=== PATIENT | male | born 1955 | race Caucasian/White ===

== ENCOUNTER 2016-11-04 18:21 | Emergency (ER) | payer OTHER ==
[2016-11-04] MEDS ORDERED: Lidocaine 2% PF * 5 ML VIAL ONE (20:35)
[2016-11-04] MEDS ORDERED: Cephalexin CAP* 500 MG PO ONE ×2 (21:25→22:35)
[2016-11-04] MEDS ORDERED: Tetanus-Diptheria Toxoids* 0.5 ML SYRINGE IM ONE (21:30)
--- NOTE | 2016-11-04 22:10 | ED ---
Ras Mejia Alfonso, scribed for James Sotelo on 11/04/16 at 8 . Upper Extremity Pain - HPI Summary HPI Summary: This patient is a 60 year old M presenting to [facility] accompanied by family with a chief complaint of a splinter in his left hand finger since 1700 today. The patient rates the pain 0/10 in severity. Symptoms aggravated and alleviated by nothing. Patient reports a headache and low WBC (2.5). PMHx of recent heart transplant for which he is on antirejection medications. He reports undergoing 56 sessions of chemotherapy. - History of Current Complaint Chief Complaint: EDExtremityUpper Stated Complaint: SPLINTER UNDER FINGER NAIL Time Seen by Provider: 11/04/16 20:11 Hx Obtained From: Patient Onset/Duration: Started Hours Ago - 1700 today, Still Present Timing: Constant Severity Initially: Mild Severity Currently: Mild Pain Location: Finger - Left hand Aggravating Factor(s): Nothing Alleviating Factor(s): Nothing Associated Signs & Symptoms: Positive: Other - Headache and low WBC. - Allergies/Home Medications Allergies/Adverse Reactions: Allergies Allergy/AdvReac Type Severity Reaction Status Date / Time No Known Allergies Allergy Verified 11/04/16 18:25 PMH/Surg Hx/FS Hx/Imm Hx Cardiovascular History: Reports: Other Cardiovascular Problems/Disorders - Heart transplant. - Cancer History Cancer Type, Location and Year: He reports undergoing 56 sessions of chemotherapy. Infectious Disease History: Denies: Traveled Outside the [place] in Last 30 Days - Family History Known Family History: Positive: Cardiac Disease - Social History Alcohol Use: None Substance Use Type: Reports: None Smoking Status (MU): Never Smoked Tobacco Review of Systems Negative: Fever Positive: Other - Positive low WBC (2.5) due to PMHx. Skin: Other - Positive splinter in his left hand finger. Positive: Headache All Other Systems Reviewed And Are Negative: Yes Physical Exam Triage Information Reviewed: Yes Vital Signs On Initial Exam: Initial Vitals Temp Pulse Resp BP Pulse Ox 98.8 F 104 16 135/92 96 11/04/16 18:25 11/04/16 18:25 11/04/16 18:25 11/04/16 18:25 11/04/16 18:25 Vital Signs Reviewed: Yes Appearance: Positive: Well-Appearing, No Pain Distress Skin: Positive: Warm, Skin Color Reflects Adequate Perfusion, Dry, Other - F Head/Face: Positive: Normal Head/Face Inspection Eyes: Positive: EOMI, MINNIE ENT: Positive: Normal ENT inspection Neck: Positive: Supple, Nontender Respiratory/Lung Sounds: Positive: Clear to Auscultation, Breath Sounds Present Cardiovascular: Positive: RRR, Pulses are Symmetrical in both Upper and Lower Extremities Abdomen Description: Positive: Nontender, Soft Bowel Sounds: Positive: Present Musculoskeletal: Positive: Normal, Strength/ROM Intact Neurological: Positive: Normal, Sensory/Motor Intact, Alert, Oriented to Person Place, Time Procedures - Procedure Summary Procedure Summary: There was a foreign body under the nail of the left index finger. Digital block with lidocaine 2% at the left index finger. The foreign body was removed. The patient tolerated the procedure well. There were no complications. Diagnostics - Vital Signs Vital Signs Temp Pulse Resp BP Pulse Ox 11/04/16 18:51 98.8 F 104 16 135/92 96 11/04/16 18:25 98.8 F 104 16 135/92 96 - Laboratory Lab Statement: Any lab studies that have been ordered have been reviewed, and results considered in the medical decision making process. Course/Dx - Course Course Of Treatment: This patient is a 60 year old M presenting to [facility] accompanied by family with a chief complaint of a splinter in his left hand finger since 1700 today. The patient rates the pain 0/10 in severity. Symptoms aggravated and alleviated by nothing. Patient reports a headache and low WBC ( 2.5). PMHx of recent heart transplant for which he is on antirejection medications. He reports undergoing 56 sessions of chemotherapy. There was a foreign body under the nail of the left index finger. Digital block with lidocaine 2% at the left index finger. The foreign body was removed. The patient tolerated the procedure well. There were no complications. Patient will be discharged with prescription for Keflex and follow up from PCP. The patient is agreeable with this plan. - Diagnoses Provider Diagnoses: Foreign body of left index finger Discharge - Discharge Plan Condition: Stable Disposition: HOME Prescriptions: Cephalexin CAP* [Keflex CAP*] 500 mg PO TID #21 cap Patient Education Materials: Soft Tissue Foreign Body (ED) Referrals: [facility] [Outside] - 3 Days The documentation as recorded by the Ras marinelli Alfonso accurately reflects the service I personally performed and the decisions made by me, James Sotelo.
[2016-11-04 22:43] VITALS: BP 142/91
== END 2016-11-04 22:44 | disposition home or self-care (01) ==
LOC: ED 18:21
DX: S60.451A Superficial foreign body of left index finger, initial encounter (principal); X58.XXXA Exposure to other specified factors, initial encounter; Y93.9 Activity, unspecified; Y92.9 Unspecified place or not applicable; Z94.1 Heart transplant status; Z92.21 Personal history of antineoplastic chemotherapy
CPT/HCPCS: 10120; 99282; A9270-GY

== ENCOUNTER 2019-07-16 23:17 | Emergency (ER) | payer MEDICARE, OTHER ==
[2019-07-17 00:05] LABS: ABS Eosinophils 0.9 10^3/ul (0-0.6); ABS Monocytes 0.9 10^3/ul (0-0.8); Eosinophil % 12.7 %; Hematocrit 41 % (42-52); Hemoglobin 14.3 g/dL (14.0-18.0); Lymphocyte % 43.5 %; Mean Corpuscular HGB Conc 35 g/dL (31-36); Mean Corpuscular Hemoglobin 33 pg (27-31); Mean Corpuscular Volume 94 fL (80-94); Mean Platelet Volume 6.8 fL (7.4-10.4); Nucleated Red Blood Cells % 0.1; Platelet Count 181 10^3/uL (150-450); Red Blood Count 4.37 10^6 /uL (4.18-5.48); Red Cell Distribution Width 19 % (10-15); White Blood Count 6.9 10^3/uL (3.5-10.8)
[2019-07-17 00:24] LABS: ALT 22 U/L (7-52); AST 19 U/L (13-39); Albumin 4.2 g/dL (3.2-5.2); Albumin/Globulin Ratio 1.4 (1-3); Alkaline Phosphatase 94 U/L (34-104); Anion Gap 8 mmol/L (2-11); Blood Urea Nitrogen 34 mg/dL (6-24); C Reactive Protein < 1.00 mg/L (<8.01); CO2 Carbon Dioxide 23 mmol/L (22-32); Calcium 9.3 mg/dL (8.6-10.3); Chloride 105 mmol/L (101-111); EGFR African American 69.5 (>60); EGFR Non-African American 57.4 (>60); Glucose 118 mg/dL (70-100); Potassium 4.1 mmol/L (3.5-5.0); Sodium 136 mmol/L (135-145); Total Protein 7.2 g/dL (6.4-8.9)
[2019-07-17 00:25] LABS: Troponin I 0.01 ng/mL (<0.03)
[2019-07-17] MEDS ORDERED: NS 0.9% 1000 ml BAG 1,000 ML IV ONE (00:32)
[2019-07-17 00:50] LABS: TSH (Thyroid Stimulating Horm) 2.08 mcIU/mL (0.34-5.60)
[2019-07-17] MEDS ORDERED: Iodixanol (CONTRAST) 320 MG/ML 100 ML SDV IV ONE (01:07)
[2019-07-17 03:38] VITALS: BP 112/91
== END 2019-07-17 03:19 | disposition home or self-care (01) ==
LOC: ED 23:17

== ENCOUNTER 2021-08-29 12:43 | Inpatient (IN) ==
[2021-08-29] MEDS ORDERED: Lactated Ringers 1000 ml BAG 1,000 ML IV ONE ×2 (13:36→17:34)
[2021-08-29 14:43] LABS: ABS Lymphocytes 1.1 10^3/ul (1.0-4.8); ABS Monocytes 0.4 10^3/ul (0-0.8); ABS Neutrophils 1.8 10^3/ul (1.5-7.7); Eosinophil % 1.4 %; Hematocrit 47 % (42-52); Hemoglobin 15.9 g/dL (14.0-18.0); Lymphocyte % 32.5 %; Mean Corpuscular HGB Conc 34 g/dL (31-36); Mean Corpuscular Hemoglobin 30 pg (27-31); Mean Corpuscular Volume 88 fL (80-94); Mean Platelet Volume 6.9 fL (7.4-10.4); Nucleated Red Blood Cells % 0.1; Platelet Count 172 10^3/uL (150-450); Red Blood Count 5.27 10^6 /uL (4.18-5.48); Red Cell Distribution Width 14 % (10-15); White Blood Count 3.3 10^3/uL (3.5-10.8)
[2021-08-29 15:04] LABS: Activated Partial Thrombo Time 32.6 seconds (26.0-38.0); INR 1.02 (0.86-1.15)
[2021-08-29 15:05] LABS: High Sens Troponin Baseline 6 pg/mL (<20)
[2021-08-29 15:25] LABS: ALT 26 U/L (7-52); AST 33 U/L (13-39); Albumin 4.8 g/dL (3.2-5.2); Albumin/Globulin Ratio 1.7 (1-3); Alkaline Phosphatase 97 U/L (35-149); Anion Gap 8 mmol/L (2-11); Blood Urea Nitrogen 33 mg/dL (6-24); C Reactive Protein < 1.00 mg/L (<8.01); CO2 Carbon Dioxide 20 mmol/L (22-32); Calcium 9.3 mg/dL (8.6-10.3); Chloride 106 mmol/L (101-111); Globulin 2.9 g/dL (2-4); Glucose 98 mg/dL (70-100); Potassium 4.4 mmol/L (3.5-5.0); Sodium 134 mmol/L (135-145); Total Protein 7.7 g/dL (6.4-8.9); eGFR CKD-EPI 39.4 (>60)
[2021-08-29] MEDS ORDERED: metroNIDAZOLE IV 500 MG/100ML 500 MG/100 ML BAG IVPB ONE (17:35)
[2021-08-29 17:46] LABS: Urine Appearance Clear; Urine Bilirubin Negative (Negative); Urine Blood Negative (Negative); Urine Color Yellow; Urine Glucose Negative (Negative); Urine Ketones Trace (Negative); Urine Nitrite Negative (Negative); Urine Protein Negative (Negative); Urine Specific Gravity 1.009 (1.002-1.030); Urine Urobilinogen Negative (Negative)
[2021-08-29 17:53] LABS: High Sensitivity Troponin 1 Hr 5 pg/mL (<20)
[2021-08-29] MEDS ORDERED: SENNA DOCUSATE SODIUM PO PRN (20:35)
[2021-08-29] MEDS ORDERED: Ondansetron 4 mg VIAL 2 MG/ML 2 ml VIAL IV PRN (20:39)
[2021-08-29] MEDS ORDERED: Lactated Ringers 1000 ml BAG 1,000 ML IV SCH (21:00)
[2021-08-29 21:54] LABS: Magnesium 1.5 mg/dL (1.9-2.7)
[2021-08-29] MEDS ORDERED: Magnesium Sulf 4 GM/100 ML IV 4,000 MG/100 ML BAG IVPB ONE (22:42)
[2021-08-29] MEDS ORDERED: Senna TAB 8.6 mg TAB PO PRN (23:14)
[2021-08-29] MEDS: Azithromycin 500 mg/250 ml NS 500 MG/250 ML BAG IVPB SCH (23:37)
[2021-08-29] MEDS: Cholecalciferol (VIT D3) 1,000 unit TAB PO SCH (23:50)
[2021-08-29] MEDS: Calcium Polycarbophil 625mg TB PO SCH (23:50)
[2021-08-29] MEDS: Calcium (OSCAL) 500 mg TAB PO SCH (23:50)
[2021-08-29] MEDS: NIACINAMIDE 500 MG PO SCH (23:51)
[2021-08-30 06:11] LABS: ABS Eosinophils 0.1 10^3/ul (0-0.6); ABS Lymphocytes 1.3 10^3/ul (1.0-4.8); ABS Monocytes 0.4 10^3/ul (0-0.8); ABS Neutrophils 1.6 10^3/ul (1.5-7.7); Eosinophil % 1.5 %; Hematocrit 39 % (42-52); Hemoglobin 13.5 g/dL (14.0-18.0); Lymphocyte % 38.1 %; Mean Corpuscular HGB Conc 34 g/dL (31-36); Mean Corpuscular Hemoglobin 30 pg (27-31); Mean Corpuscular Volume 87 fL (80-94); Mean Platelet Volume 6.6 fL (7.4-10.4); Nucleated Red Blood Cells % 0.2; Platelet Count 126 10^3/uL (150-450); Red Blood Count 4.51 10^6 /uL (4.18-5.48); Red Cell Distribution Width 14 % (10-15); White Blood Count 3.4 10^3/uL (3.5-10.8)
[2021-08-30 06:53] LABS: Calcium 8.6 mg/dL (8.6-10.3); Potassium 4.1 mmol/L (3.5-5.0); eGFR CKD-EPI 59.1 (>60)
[2021-08-30 07:59] LABS: Magnesium 2.4 mg/dL (1.9-2.7)
[2021-08-30] MEDS ORDERED: EVEROLIMUS 0.25 MG PO SCH (09:00)
[2021-08-30] MEDS: TACROLIMUS 1 MG PO SCH ×2 (09:05→17:45)
[2021-08-30] MEDS: EVEROLIMUS 0.75 MG PO SCH ×2 (09:05→17:47)
[2021-08-30] MEDS: Calcium Polycarbophil 625mg TB PO SCH ×2 (09:05→20:37)
[2021-08-30] MEDS: NIACINAMIDE 500 MG PO SCH ×2 (09:05→20:39)
[2021-08-30] MEDS: Calcium (OSCAL) 500 mg TAB PO SCH (09:05)
[2021-08-30] MEDS: Enoxaparin 40 MG/0.4 ML SYR SUBCUT SCH (09:06)
[2021-08-30] MEDS: EVEROLIMUS 0.25 MG PO SCH (17:47)
[2021-08-30] MEDS ORDERED: PTO:Tacrolimus 0.5 mg CAP PO SCH (18:00)
[2021-08-30] MEDS ORDERED: NF: Mirabegron 50 mg ER TAB (NF) PO SCH (18:00)
[2021-08-30] MEDS ORDERED: EVEROLIMUS 0.75 MG PO SCH (18:00)
[2021-08-30] MEDS: Azithromycin 500 mg/250 ml NS 500 MG/250 ML BAG IVPB SCH (20:37)
[2021-08-30] MEDS: CALCIUM 500 MG PO SCH (20:37)
[2021-08-30] MEDS: Cholecalciferol (VIT D3) 1,000 unit TAB PO SCH (20:37)
[2021-08-31 05:56] LABS: Blood Urea Nitrogen 18 mg/dL (6-24); CO2 Carbon Dioxide 22 mmol/L (22-32); Calcium 8.4 mg/dL (8.6-10.3); Glucose 90 mg/dL (70-100); Potassium 4.1 mmol/L (3.5-5.0); Sodium 139 mmol/L (135-145); eGFR CKD-EPI 65.6 (>60)
[2021-08-31 05:57] LABS: Anion Gap 5 mmol/L (2-11); Chloride 112 mmol/L (101-111)
[2021-08-31 08:00] LABS: Hematocrit 38 % (42-52); Hemoglobin 13.2 g/dL (14.0-18.0); Mean Corpuscular HGB Conc 35 g/dL (31-36); Mean Corpuscular Hemoglobin 30 pg (27-31); Mean Corpuscular Volume 88 fL (80-94); Mean Platelet Volume 6.6 fL (7.4-10.4); Platelet Count 142 10^3/uL (150-450); Red Blood Count 4.35 10^6 /uL (4.18-5.48); Red Cell Distribution Width 14 % (10-15); White Blood Count 3.3 10^3/uL (3.5-10.8)
[2021-08-31 08:05] LABS: ABS Eosinophils 0.1 10^3/ul (0-0.6); ABS Lymphocytes 1.3 10^3/ul (1.0-4.8); ABS Monocytes 0.4 10^3/ul (0-0.8); ABS Neutrophils 1.6 10^3/ul (1.5-7.7); Eosinophil % 1.7 %; Lymphocyte % 38.7 %; Nucleated Red Blood Cells % 0.3
[2021-08-31 08:44] LABS: C Reactive Protein < 1.00 mg/L (<8.01)
[2021-08-31] MEDS: Calcium Polycarbophil 625mg TB PO SCH (08:57)
[2021-08-31] MEDS: CALCIUM 500 MG PO SCH (08:58)
[2021-08-31] MEDS: EVEROLIMUS 0.75 MG PO SCH ×2 (09:01→17:53)
[2021-08-31] MEDS: TACROLIMUS 1 MG PO SCH ×2 (09:01→17:54)
[2021-08-31] MEDS: Enoxaparin 40 MG/0.4 ML SYR SUBCUT SCH (09:03)
[2021-08-31] MEDS: NIACINAMIDE 500 MG PO SCH ×2 (09:53→20:13)
[2021-08-31] MEDS: EVEROLIMUS 0.25 MG PO SCH (17:53)
[2021-08-31] MEDS ORDERED: PTO: Mirabegron 50 mg ER TAB (NF) PO SCH (18:00)
[2021-08-31] MEDS: Azithromycin 500 mg/250 ml NS 500 MG/250 ML BAG IVPB SCH (20:13)
[2021-08-31] MEDS: Cholecalciferol (VIT D3) 1,000 unit TAB PO SCH (20:14)
[2021-08-31] MEDS: CALCIUM PO SCH (20:15)
[2021-08-31] MEDS: VITAMIN D PO SCH (20:15)
[2021-09-01 08:47] LABS: Calcium 8.9 mg/dL (8.6-10.3); Potassium 4.3 mmol/L (3.5-5.0); eGFR CKD-EPI 70.5 (>60)
[2021-09-01] MEDS: Enoxaparin 40 MG/0.4 ML SYR SUBCUT SCH (09:57)
[2021-09-01] MEDS: EVEROLIMUS 0.75 MG PO SCH (10:02)
[2021-09-01] MEDS: TACROLIMUS 1 MG PO SCH (10:03)
[2021-09-01] MEDS: VITAMIN D PO SCH (10:04)
[2021-09-01] MEDS: CALCIUM PO SCH (10:04)
[2021-09-01 11:45] VITALS: BP 138/85
[2021-09-01] MEDS: NIACINAMIDE 500 MG PO SCH (12:14)
[2021-09-02 10:08] LABS: Adenovirus F40/41 Negative (Negative); Astrovirus Positive (Negative); Cryptosporidium species Negative (Negative); Cyclospora cayetanensis Negative (Negative); Entamoeba histolytica Negative (Negative); Enteroaggregative E.coli(EAEC) Negative (Negative); Enteropathogenic Ecoli(EPEC) Negative (Negative); Enterotoxigenic Ecoli(ETEC) Negative (Negative); Norovirus GI/GII Negative (Negative); Plesiomonas shigelloides Negative (Negative); Salmonella species Negative (Negative); Sapovirus Negative (Negative); Shiga toxin producing E. coli Negative (Negative); Shigella/Enteroinvasive E.coli Negative (Negative); Specimen Source STOOL; Vibrio cholerae Negative (Negative); Yersinia species Negative (Negative)
== END 2021-09-01 16:02 | disposition home or self-care (01) | DRG 392 ==
LOC: ED 12:43 → EDHOLD 12:43 → SUATTDRO 20:33 → MEDTELE 08-30 01:05 → SUATTDRO 08-31 11:11
PROVIDERS: ADMIT Internal Medicine; ATTEND Internal Medicine